=== PATIENT | female | born 1945 | race Caucasian/White ===

== ENCOUNTER 2016-09-13 16:27 | Emergency (ER) | payer OTHER, MEDICARE ==
--- NOTE | 2016-09-13 16:38 | EDPHY ---
H & P HPI/ROS: HPI CHIEF COMPLAINT: Right index finger pain and swelling HISTORY OF PRESENT ILLNESS: This patient very pleasant 70-year-old female, no significant medical history does not take any daily medications, she presents emergency room with right index finger swelling and pain at the base of her index finger. She states she injured it 5 days ago. States her dog pulled the leash and injured her index finger right hand. Since then she has had pain. No laceration. Past Medical History: Denies medical history Past Surgical History: Total hysterectomy Social History: Denies daily use drugs alcohol tobacco products Family History: Noncontributory ROS REVIEW OF SYSTEMS: A comprehensive 10 point review of systems is otherwise negative aside from elements mentioned in the history of present illness. Exam Constitutional triage nursing summary reviewed, vital signs reviewed, awake/ alert. Eyes normal conjunctivae and sclera, EOMI, PERRLA. HENT normal inspection, atraumatic, moist mucus membranes, no epistaxis, neck supple/ no meningismus, no raccoon eyes. Respiratory clear to auscultation bilaterally, normal breath sounds, no respiratory distress, no wheezing. Cardiovascular rate normal, regular rhythm, no murmur, no edema, distal pulses normal. Gastrointestinal soft, non-tender, no rebound, no guarding, normal bowel sounds, no distension, no pulsatile mass. Genitourinary no CVA tenderness. Musculoskeletal right hand: Right index finger: Mild swelling at the base of the right index finger some ecchymosis. Full range of motion. Neurovascular intact. Pain with palpation. no midline vertebral tenderness, full range of motion, no calf swelling, no tenderness of extremities, no meningismus, good pulses, neurovascularly intact. Skin pink, warm, & dry, no rash, skin atraumatic. Neurologic awake, alert and oriented x 3, AAOx3, moves all 4 extremities equally, motor intact, sensory intact, CN II-XII intact, normal cerebellar, normal vision, normal speech. Psychiatric normal mood/affect. Heme/Lymph/Immune no lymphadenopathy. Differential Diagnosis: Includes but is not limited to in a particular order, finger contusion, finger sprain, bony fracture, bony contusion Medical Decision Making: Plan for this patient x-ray right index finger. And then finger splint. Rule out fracture. Re-evaluation: ED x-ray right index finger: Negative for acute fracture malalignment. Image interpreted by myself Recommend staying in finger splint x1 week, anti-inflammatory pain medicine and ice. Follow up with primary care doctor or Hand surgery. Return emergency room if there is any worsening symptoms questions or concerns. 1728: Patient been placed in a [place] finger splint for support. Recommend ice, anti-inflammatory pain medicine. Continues to have pain from a week no recommend following up with Hand surgery. Source: Patient Constitutional: Initial Vital Signs Temperature (C) 37.0 C 09/13/16 16:35 Heart Rate 64 09/13/16 16:35 Respiratory Rate 16 09/13/16 16:35 Blood Pressure 139/80 H 09/13/16 16:35 O2 Sat (%) 97 09/13/16 16:35 O2 Delivery Mode Room Air Allergies/Adverse Reactions: No Known Allergies Allergy (Verified 09/13/16 16:42) Home Medications: Medication Instructions Recorded NK [No Known Home Meds] 09/13/16 Departure - Departure Disposition: Home, Routine, Self-Care Clinical Impression: Contusion of index finger Qualifiers: Encounter type: initial encounter Damage to nail status: without damage Laterality: right Qualified Code(s): S60.021A - Contusion of right index finger without damage to nail, initial encounter Condition: Good Instructions: Contusion in Adults (ED) Additional Instructions: 1. Stay in her splint for 1 week for comfort. 2. Ice her finger. 3. Take Tylenol or Motrin for pain control. 4. If you to have pain follow-up with Hand surgery. Referrals: She Mccarthy MD [Primary Care Provider] - As per Instructions Santiago Burdick MD [Medical Doctor] - As per Instructions
[2016-09-13 16:48] VITALS: BP 139/80; PULSE 64; RESP 16; TEMP 98.6; O2SAT 97
== END 2016-09-13 17:30 | disposition home or self-care (01) ==
LOC: CED 16:27
DX: S60.021A Contusion of right index finger without damage to nail, initial encounter (principal); X58.XXXA Exposure to other specified factors, initial encounter
CPT/HCPCS: 73140; 99283; L3925

== ENCOUNTER → 2016-12-18 | Outpatient (CLI) | payer OTHER, MEDICARE | LOC: FIMAGING 13:41 | PROVIDERS: ATTEND Internal Medicine | DX: Z12.31 Encounter for screening mammogram for malignant neoplasm of breast (principal) | CPT/HCPCS: G0202 ==

== ENCOUNTER → 2018-03-11 | Outpatient (CLI) | payer OTHER, MEDICARE | LOC: FIMAGING 11:24 | PROVIDERS: ATTEND Internal Medicine | DX: Z12.31 Encounter for screening mammogram for malignant neoplasm of breast (principal) ==